=== PATIENT | male | born 1960 | race Caucasian/White ===

== ENCOUNTER 2024-01-07 15:35 | Observation (INO) | payer BC, SELFPAY ==
[2024-01-07] VITALS (16 sets, daily range): BP systolic 91–124; BP diastolic 56–81; BMI 21.3
--- NOTE | 2024-01-07 11:33 | ED.GENMED ---
History of Present Illness
<Dionicio Villegas PA-C - Last Filed: 01/07/24 14:36>
General
Chief Complaint: Abdominal Symptoms
Source: patient
Exam Limitations: none
Time Seen by Provider: 01/07/24 11:25
Travel History
Have you had any contact with someone who has COVID-19?: No
Do you have any symptoms of coronavirus? Fever > 100 degrees, chills, cough, shortness of breath, sore throat, loss of taste or smell, muscle aches, or headache?: No
History of Present Illness
History of Present Illness:
63-year-old male with history of gout and GERD and pancreatic insufficiency presents complaining of 3 days worth of vomiting with right-sided abdominal pain. He notes a bulge to the right side of the abdomen. He has not moved his bowels. Anytime
he takes a sip of water comes back up 5 minutes later. No fever. He has a history of inguinal hernia repair done on the left side years ago. No other complaints at this time
Past History
<Dionicio Villegas PA-C - Last Filed: 01/07/24 14:36>
Past History
ED Past Medical History: GERD, Hypercholesterolemia and Other (Gout)
Social History
Tobacco: Non-smoker
Personal: Single
Family History
Family History: Negative Early CAD or CAD
Phy Exam
<Dionicio Villegas PA-C - Last Filed: 01/07/24 14:36>
Physical Exam
Physical Exam:
General: Well-appearing male no acute respiratory distress
HEENT: Normocephalic atraumatic
Heart: Regular rate and rhythm no murmurs
Lungs: Clear no wheeze or rales
Abdomen: Soft tender to the right lower abdomen with palpable bulge. This bulge is firm nonreducible and tender
Extremities: No cyanosis or edema
Course
<Dionicio Villegas PA-C - Last Filed: 01/07/24 14:36>
Orders/Labs/Results
Orders:
Orders
01/07/24 Lunch
Low Residue
At Your Request: Full Participation
01/07/24 11:32
0.9% Sodium Chloride 1000 ml [Nss] 1,000 ml IV BOLUS
01/07/24 11:33
CT Abd/pelvis W Iv Cont Urgent
Comment:
Reason For Exam: vomiting, right sided hernia, ?bowel obstruction
01/07/24 11:36
Ondansetron Injectable [Zofran] 4 mg IV NOW STA
01/07/24 11:51
Complete Blood Count/With Diff Urgent
Comprehensive Metabolic Panel Urgent
Lactic Acid Q4H
Comment: CANCEL 2nd LACTIC ACID IF 1st LACTIC ACID IS LESS THAN 2
01/07/24 13:30
HYDROmorphone [Dilaudid] 0.5 mg IV NOW STA
01/07/24 13:48
0.9% Sodium Chloride 1000 ml [Nss] 1,000 ml IV BOLUS
01/07/24 14:16
Propofol [Diprivan] 20 ml .ROUTE .STK-MED
01/07/24 14:37
Admit Patient As Directed
Co-Sign Provider:
Level of Care: Observation services
Assign to:: Medical/Surgical
Physician / Group: [facility]
Diagnosis: RLQ spigelian hernia
Code Status As Directed
Resuscitation Status: Full Code
Acetaminophen [Tylenol] 650 mg PO Q4HPRN PRN
Ibuprofen [Motrin] 400 mg PO Q6HPRN PRN
Activity As Directed
Activity Level: Out of Bed-Early Mobility
Anti-embolism (GARIMA) Hose As Directed
Type: Thigh high
Intake/ Output As Directed
Frequency: Per unit guidelines
Vital Signs As Directed
Frequency: Per unit guidelines
01/07/24 14:38
Pneumatic Compression Sleeves As Directed
Type: Thigh high
DX Deep Vein Thrombosis Video Routine
01/07/24 18:00
Atorvastatin [Lipitor] 20 mg PO QPM
01/07/24 21:00
Timolol Maleate/Dorzolam HCl [Cosopt Eye Drops] See Dose Instructions OPHTH BID
01/08/24 08:00
Allopurinol [Zyloprim] 300 mg PO DAILY
Pantoprazole [Protonix] 40 mg PO DAILY
Abnormal Lab Results
01/07/24
11:51
RBC 4.36 L 10^6/uL
(4.70-6.10)
MCH 33.3 H pg
(27.0-31.0)
MPV 11.1 H fL
(7.4-10.4)
Absolute Neuts (auto) 7.6 H 10^3/uL
(1.4-6.5)
Absolute Lymphs (auto) 1.0 L 10^3/uL
(1.2-3.4)
Absolute Monos (auto) 0.9 H 10^3/uL
(0.1-0.6)
Neutrophils % 78.4 H %
(42.2-75.2)
Lymphocytes % 10.4 L %
(20.5-51.1)
BUN 30 H mg/dl
(9-20)
Total Bilirubin 1.5 H mg/dl
(0.2-1.3)
01/07/24 11:51
01/07/24 11:51
Vital Signs
Initial and Last Documented VS:
Initial Vital Signs
Temp Pulse Resp BP Pulse Ox
98.3 F 79 20 124/75 99
01/07/24 10:56 01/07/24 10:56 01/07/24 10:56 01/07/24 10:56 01/07/24 10:56
Last Documented Vital Signs
Temp Pulse Resp BP Pulse Ox
98.1 F 59 16 100/67 99
01/08/24 12:59 01/08/24 12:59 01/08/24 12:59 01/08/24 12:59 01/08/24 12:59
<Benjamin Ambriz, - Last Filed: 01/17/24 05:14>
Orders/Labs/Results
Orders:
Orders
01/07/24 Lunch
Low Residue
At Your Request: Full Participation
01/07/24 11:32
0.9% Sodium Chloride 1000 ml [Nss] 1,000 ml IV BOLUS
01/07/24 11:33
CT Abd/pelvis W Iv Cont Urgent
Comment:
Reason For Exam: vomiting, right sided hernia, ?bowel obstruction
01/07/24 11:36
Ondansetron Injectable [Zofran] 4 mg IV NOW STA
01/07/24 11:51
Complete Blood Count/With Diff Urgent
Comprehensive Metabolic Panel Urgent
Lactic Acid Q4H
Comment: CANCEL 2nd LACTIC ACID IF 1st LACTIC ACID IS LESS THAN 2
01/07/24 13:30
HYDROmorphone [Dilaudid] 0.5 mg IV NOW STA
01/07/24 13:48
0.9% Sodium Chloride 1000 ml [Nss] 1,000 ml IV BOLUS
01/07/24 14:16
Propofol [Diprivan] 20 ml .ROUTE .STK-MED
01/07/24 14:37
Admit Patient As Directed
Co-Sign Provider:
Level of Care: Observation services
Assign to:: Medical/Surgical
Physician / Group: [facility]
Diagnosis: RLQ spigelian hernia
Code Status As Directed
Resuscitation Status: Full Code
Acetaminophen [Tylenol] 650 mg PO Q4HPRN PRN
Ibuprofen [Motrin] 400 mg PO Q6HPRN PRN
Activity As Directed
Activity Level: Out of Bed-Early Mobility
Anti-embolism (GARIMA) Hose As Directed
Type: Thigh high
Intake/ Output As Directed
Frequency: Per unit guidelines
Vital Signs As Directed
Frequency: Per unit guidelines
01/07/24 14:38
Pneumatic Compression Sleeves As Directed
Type: Thigh high
DX Deep Vein Thrombosis Video Routine
01/07/24 18:00
Atorvastatin [Lipitor] 20 mg PO QPM
01/07/24 21:00
Timolol Maleate/Dorzolam HCl [Cosopt Eye Drops] See Dose Instructions OPHTH BID
01/08/24 08:00
Allopurinol [Zyloprim] 300 mg PO DAILY
Pantoprazole [Protonix] 40 mg PO DAILY
Abnormal Lab Results
01/07/24
11:51
RBC 4.36 L 10^6/uL
(4.70-6.10)
MCH 33.3 H pg
(27.0-31.0)
MPV 11.1 H fL
(7.4-10.4)
Absolute Neuts (auto) 7.6 H 10^3/uL
(1.4-6.5)
Absolute Lymphs (auto) 1.0 L 10^3/uL
(1.2-3.4)
Absolute Monos (auto) 0.9 H 10^3/uL
(0.1-0.6)
Neutrophils % 78.4 H %
(42.2-75.2)
Lymphocytes % 10.4 L %
(20.5-51.1)
BUN 30 H mg/dl
(9-20)
Total Bilirubin 1.5 H mg/dl
(0.2-1.3)
01/07/24 11:51
01/07/24 11:51
Vital Signs
Initial and Last Documented VS:
Initial Vital Signs
Temp Pulse Resp BP Pulse Ox
98.3 F 79 20 124/75 99
01/07/24 10:56 01/07/24 10:56 01/07/24 10:56 01/07/24 10:56 01/07/24 10:56
Last Documented Vital Signs
Temp Pulse Resp BP Pulse Ox
98.1 F 59 16 100/67 99
01/08/24 12:59 01/08/24 12:59 01/08/24 12:59 01/08/24 12:59 01/08/24 12:59
Procedures
<Dionicio Villegas PA-C - Last Filed: 01/07/24 14:36>
Moderate Sedation
ASA Risk Score: Class II
Chart and allergies reviewed: Yes
Consent for anesthesia obtained: Yes
Time out completed (validating right patient & procedure): Yes
Moderate Sedation Start Time(when first medication is given): 14:21
History of difficult intubation: No
Airway free of obstruction: Yes
Patient has a gag reflex: Yes
Patient is able to open mouth: Yes
Patient has no dentures: Yes
Patient has no loose teeth: Yes
Medication administered by Provider during Moderate Sedation: IV Propofol (mg)
Total dose administered: 80
Time drug administered: 14:21
Moderate Sedation Procedure End Time: 14:32
<YUNIOR Lucio Last Filed: 01/07/24 14:36>
MDM/Problems Addressed
Differential Diagnosis Includes:
Abdominal pain with vomiting. Clinical concern for possible incarcerated hernia causing small bowel obstruction. Other items could include appendicitis versus abscess. Will check for electrolyte abnormality and the blood work. CT pending.
Fluids and Zofran ordered
<YUNIOR Lucio Last Filed: 05/29/24 14:36>
*Critical Care Note
Total Time (30-74mins, 75-104mins- exclusive of procedures): Not Applicable
<Dionicio Villegas PA-C - Last Filed: 01/07/24 14:36>
Update Note
Update Note:
CT reviewed and demonstrates incarcerated spigelian hernia in the right lower quadrant. Discussed these findings with surgery who is in to evaluate the patient. Patient is quite tender on exam he was given fluids and pain medicine. Written
consent was then obtained for moderate sedation and closed reduction of the hernia. Sedation performed by emergency room attending. Reduction performed by general surgery, Dr. Mccormack. This was successful. Patient will be kept overnight under the
surgery service.
ED Attending Note
<Dionicio Villegas PA-C - Last Filed: 01/07/24 14:36>
-
Portions of this chart may have been created with voice recognition software.� Occasional wrong word or��sound alike� substitutions may have occurred due to the inherent limitations of voice recognition software.
<Benjamin Ambriz DO - Last Filed: 01/17/24 05:14>
ED Attending Note
Patient seen and examined by attending physician: Yes
I performed the substantive portion of visit, reviewed & personally made and approve the management plan that is documented in note by myself or RAJIV.: Yes
ED Attending Note:
63yo with R hernia. Seen by surgery. Patient has been vomiting and unable to eat for 3 days. Exam: Awake and alert, moderate right-sided tenderness. Assessment and plan: Sedation for hernia reduction successful. Admit to surgery
Discharge Plan
Departure
Patient Disposition: Admit
Presentation/result/management discussed w/ accepting MD/DO: surgery
Discharge Problem:
Incarcerated hernia
Interventions
Interventions:
*Risk Screen - Suicide Last Done: 01/07/24 10:56
*General Assessment Last Done: 01/07/24 10:56
*Neglect/Abuse Screening Last Done: 01/07/24 10:56
ED- Fall Risk Assessment Last Done: 01/07/24 19:59
*ED COVID-19 Vaccine History Last Done: 01/07/24 18:40
*Nursing Disposition Last Done: 01/07/24 19:59
UA-Mvmixh-Tumlygigpl Assessment Last Done: 01/07/24 11:45
Discharge Date and Time
Discharge Date/Time: 01/07/24 19:45
[2024-01-07] MEDS: ZOFRAN 4 MG IV (11:49)
[2024-01-07] MEDS: NSS 1000 IV ×2 (11:49→13:54)
[2024-01-07 12:42] LABS: % Basophils 0.6 % (0-2); % Eosinophils 1.2 % (0-6); % Immature Granulocytes 0.3 % (0-0.5); % Lymphocytes 10.4 % (20.5-51.1); % Monocytes 9.1 % (1.7-9.3); % Neutrophils 78.4 % (42.2-75.2); Absolute Basophils 0.1 10^3/uL (0-0.2); Absolute Eosinophils 0.1 10^3/uL (0-0.7); Absolute Monocytes 0.9 10^3/uL (0.1-0.6); Absolute Neutrophils 7.6 10^3/uL (1.4-6.5); Hemoglobin 14.5 g/dL (13.0-18.0); Mean Corp Hgb Conc. 36.3 g/dL (33.0-37.0); Mean Corpuscular Hgb 33.3 pg (27.0-31.0); Mean Corpuscular Volume 91.7 fL (80.0-94.0); Mean Platelet Volume 11.1 fL (7.4-10.4); Nucleated Red Blood Cells % 0 % (-); Platelet Count 254 10^3/uL (130-400); Red Blood Cell Count 4.36 10^6/uL (4.70-6.10); Red Cell Dist. Width 12.9 % (11.5-14.5); White Blood Cell Count 9.7 10^3/uL (4.8-10.8)
[2024-01-07 12:48] LABS: ALT (SGPT) 20 U/L (0-50); AST (SGOT) 26 U/L (17-59); Albumin 4.7 g/dl (3.5-5.0); Alkaline Phosphatase 53 U/L (38-126); Blood Urea Nitrogen 30 mg/dl (9-20); Calcium 9.5 mg/dl (8.4-10.2); Carbon Dioxide 27 mmol/L (22-30); Chloride 100 mmol/L (98-107); Glucose 98 mg/dl (70-99); Potassium 4.6 mmol/L (3.5-5.1); Sodium 139 mmol/L (135-145); Total Bilirubin 1.5 mg/dl (0.2-1.3); Total Protein 7.5 g/dl (6.3-8.2); eGFR > 60.00
[2024-01-07 12:49] LABS: Lactic Acid 1.6 mmol/L (0.7-2.0)
[2024-01-07] MEDS: DILAUDID 0.5 MG IV (13:40)
--- NOTE | 2024-01-07 14:31 | CON.GS ---
Consultation
-
Requesting Provider: Bakari
Performing Provider: [facility]
Reason for Consultation: Incarcerated RLQ spigelian hernia
Medical History
-
Chief Complaint: Abd pain
History of Present Illness:
63M with 3 day hx of RLQ abd pain that began acutely. Associated with n/v. Denies f/c. Denies recent heavy lift, coughing/sneeezing/straining. Has known about the hernia for awhile but it was never a problem until this episode. He has not been able
to tolerate PO. He has not been passing flatu nor stool.
Past Medical History
Past Medical History: GERD, Hypercholesterolemia and Other (gout)
Past Surgical History: Reviewed & Noncontributory
Social History
Tobacco: Non-Smoker
Personal: Single
Family History
Family History: Reviewed & Not Pertinent
Allergies / Home Medications
Allergy/AdvReac Type Severity Reaction Status Date / Time
No Known Allergies Allergy Verified 01/07/24 10:55
�Medication �Instructions �Recorded �Confirmed �Type
allopurinol 300 mg tablet 300 mg PO DAILY 10/12/21 10/12/21 History
atorvastatin 10 mg tablet 20 mg PO QPM 10/12/21 10/12/21 History
cholecalciferol (vitamin D3) 25 1,000 unit PO DAILY 10/12/21 10/12/21 History
mcg (1,000 unit) capsule (Vitamin
D3)
pantoprazole 40 mg tablet,delayed 40 mg PO DAILY 10/12/21 10/12/21 History
release
timolol 0.25 % eye drops (Betimol) 5 ml OP DAILY 10/12/21 10/12/21 History
Review of Systems
-
A 10 point review of systems was completed, and was negative except as per HPI.
Physical Exam
Vital Signs
Temp Pulse Resp BP Pulse Ox
98.3 F 75 20 92/61 99
01/07/24 10:56 01/07/24 13:44 01/07/24 13:44 01/07/24 13:44 01/07/24 13:44
01/06/24 01/07/24 01/08/24
06:59 06:59 06:59
Actual Weight 70.6 kg
Lab Results
01/07/24 11:51
01/07/24 11:51
WBC 9.7 10^3/uL (4.8-10.8) 01/07/24 11:51
Hgb 14.5 g/dL (13.0-18.0) 01/07/24 11:51
Hct 40.0 % (39.0-52.0) 01/07/24 11:51
Plt Count 254 10^3/uL (130-400) 01/07/24 11:51
Abs Immat Gran (auto) 0.0 10^3/uL (0-0.05) 01/07/24 11:51
Neutrophils % 78.4 % (42.2-75.2) H 01/07/24 11:51
Physical Exam
General: Well Developed, Well Nourished and No Apparent Distress
GI: Soft, Non Distended and Tender (RLQ firm tender mass)
Skin: Warm and Dry
Neuro: AO x 3
Psych: Calm
Data Reviewed
-
CT Scan: Image Personally Visualized and interpreted, Report Reviewed by me, Discussed with Physician and Discussed with Patient
Labs: Labs Reviewed by me
Assessment / Plan
-
63M with incarcerated RLQ spigelian hernia
AFVSS, tender firm hernia on exam
No leukocytosis
CT with RLQ spigelian hernia involving small bowel, high grade obstruction
ED monitored sedation with propofol, manually reduced hernia
Plan:
Admit for obs
Low res diet
Tentative for DC tomorrow if feeling well, scheduled for 6/10 for elective robo repair.
Home meds
DVT ppx
--- NOTE | 2024-01-07 22:00 | PTCARENOTE ---
Patient received from ED via stretcher. Patient able to ambulate independently into room. Patient denies any pain, patient s/p hernia reduction done manually in ED. Call [facility] and room orientation provided to patient. POC reviewed with patient. Care
ongoing.
[2024-01-08 07:00] VITALS: BP 97/59
--- NOTE | 2024-01-08 08:18 | W.PN.GS2 ---
Today's Communication / Plan
-
`
Assessment / Plan
-
Assessment: 63 y/o male p/w incarcerated and obstructing RLQ spigelian hernia - reduced in ER with sedation
AFVSS
no signs/symptoms of obstruction or recurrent incarceration after reduction
Plan: pt will be discharged and outpt surgery has been scheduled by/with Toni Mccormack on 01/19/24
Subjective Data
-
Date of Service: January 08, 2024
pt seen and examined
minimal soreness at hernia site
no nausea
adeel breakfast
+fl and small BM yesterday evening
Objective Data
-
Intake and Output
01/07/24 01/08/24 01/09/24
06:59 06:59 06:59
Intake Total 1480 / 1480
Balance 1480 / 1480
Intake:
Oral fluids 480 / 480
IV fluids (Total) 1000 / 1000
NSS 1000 / 1000
Other:
Number of approximated MODERATE 1
amounts of urine
Vital Signs
Temp Pulse Resp BP Pulse Ox
98.4 F 57 16 97/59 100
01/08/24 07:00 01/08/24 07:00 01/08/24 07:00 01/08/24 07:00 01/08/24 07:00
Lab Results
01/07/24 11:51
01/07/24 11:51
Calcium 9.5 mg/dl (8.4-10.2) 01/07/24 11:51
Total Bilirubin 1.5 mg/dl (0.2-1.3) H 01/07/24 11:51
AST 26 U/L (17-59) 01/07/24 11:51
ALT 20 U/L (0-50) 01/07/24 11:51
Alkaline Phosphatase 53 U/L (38-126) 01/07/24 11:51
Total Protein 7.5 g/dl (6.3-8.2) 01/07/24 11:51
Albumin 4.7 g/dl (3.5-5.0) 01/07/24 11:51
Physical Exam
-
NAD AAOx3
ABD soft, ND, minimal RLQ tenderness
hernia reduced and not palpable this AM
--- NOTE | 2024-01-08 08:23 | W.DS.TRANS ---
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
-
Discharge Instructions:
Discharge Diagnosis/Procedures Right lower quadrant spigelian hernia
Diet No restrictions,As tolerated
Activity No strenuous activity
Driving Restrictions As prior to admission
Bathing Restrictions OK to Shower
Instructions: Abdominal wall hernias
Stand-Alone Forms:
Changes to Home Medications: No
Discharge Medications:
DC Medications w/original date entered in [employer]
allopurinol 300 mg tablet 300 mg PO DAILY 10/12/21
cholecalciferol (vitamin D3) 25 mcg (1,000 unit) capsule (Vitamin D3) 1,000 unit PO DAILY 10/12/21
pantoprazole 40 mg tablet,delayed release 40 mg PO DAILY 10/12/21
dorzolamide-timolol (PF) 2 %-0.5 % eye drops in a dropperette 1 drp RIGHT EYE BID 01/07/24
ytgejz-bbvvxuek-hbgqimm 12,000-38,000-60,000 unit capsule,delayed rel (Creon) 1 cap PO TIDPRN PRN high calorie intake 01/07/24
therapeutic multivitamin 1 tab PO DAILY 01/07/24
Home Medication Changes
Pending Results: No
--- NOTE | 2024-01-08 09:54 | CM ---
Patient seen at bedside. Patient stated that he lives alone, in a 2 story home. Patient indicated that he has no DME at home. Patient stated that his PCP is Dr. Mckenna and that he uses the [facility] in [place]. Patient states that he has no
needs for discharge at this time. CM reviewed OBS form and patient to review. CM updated surgeon regarding patient question about OBS status. CM will continue to follow for discharge planning needs.
Plan; home with no needs anticipated.
[2024-01-08 12:59] VITALS: BP 100/67
== END 2024-01-08 13:11 | disposition home or self-care (01) ==
LOC: 3 WEST ACU 15:35
PROVIDERS: Physician Assistant; ADMITTING PHYSICIAN Surgery; EMERGENCY PHYSICIAN Emergency Medicine; FAMILY PHYSICIAN Internal Medicine
DX: K43.6 Other and unspecified ventral hernia with obstruction, without gangrene (principal); R10.9 Unspecified abdominal pain; K21.9 Gastro-esophageal reflux disease without esophagitis; M10.9 Gout, unspecified; E78.00 Pure hypercholesterolemia, unspecified; N40.0 Benign prostatic hyperplasia without lower urinary tract symptoms
CPT/HCPCS: 74177; 80053; 83605; 85025; 93005; 96361; 96374; 96375; 99152; 99285; G0378; Q9967

== ENCOUNTER 2024-01-19 06:34 | Day surgery (SDC) | payer BC, SELFPAY ==
[2024-01-19] VITALS (7 sets, daily range): BP systolic 101–113; BP diastolic 68–75; BMI 21.2
[2024-01-19] MEDS: TYLENOL 1000 MG PO (14:40)
[2024-01-19] MEDS: NORMOSOL-R 1000 IV (14:47)
--- NOTE | 2024-01-19 17:33 | W.IMMPOSTOP ---
Surgical Immed Post Op Note
-
Primary Surgeon: [facility]
Assisting: Radha LOPEZ
Pre-op Diagnosis: Incarcerated spigelian hernia
Post-op Diagnosis: Incarcerated spigelian hernia
Procedure Performed: Robot assisted laparoscopic repair of incarcerated spigelian hernia (rTAPP, 2cm)
Anesthesia Type: GETA block
Specimen / Cultures: None
Estimated Blood Loss: 5cc
Complications: None immediate
Operative Findings: 2cm right lower quadrant spigelian hernia with incarcerated fat, 9cm soft mesh
--- NOTE | 2024-01-19 17:39 | OR.RPT ---
Operative Report
Operative Report
Primary Surgeon: [facility]
Assisting: Radha LOPEZ
Pre-op Diagnosis: Incarcerated spigelian hernia
Post-op Diagnosis: Incarcerated spigelian hernia
Procedure Performed: Robot assisted laparoscopic repair of incarcerated spigelian hernia (rTAPP, 2cm)
Anesthesia Type: GETA block
Specimen / Cultures: None
Estimated Blood Loss: 5cc
Complications: None immediate
Operative Findings: 2cm right lower quadrant spigelian hernia with incarcerated fat, 9cm soft mesh
Date of surgery: 01/19/24
Indications:� This 63M developed a an incarcerated right lower quadrant spigelian hernia with bowel obstruction. He was reduced under sedation in the Emergency Dept and discharged home after tolerating diet. Robot assisted laparoscopic repair was
planned.
Description of procedure:� The patient was taken to the operating room and positioned into supine position. The patient�s abdomen was prepped and draped in standard sterile fashion. A time-out was completed verifying correct patient, procedure,
site, positioning, and implants and special equipment prior to beginning this procedure.� A stab incision was made in the left upper quadrant, a Veress needle was inserted and proper position was confirmed by aspiration and saline drop test.
Following this, pneumoperitoneum was created with insufflation of carbon dioxide to 12 mmHg. Then a 8mm robotic trocar was inserted above and to the right of the umbilicus. A laparoscope was inserted and the area of initial trocar entry and Veress
needle placement were both inspected and no injuries were found. Two 8mm trocars were then placed a hand's breadth left and right of the initial trocar under direct visualization.
Attention was turned to the right lower quadrant. The peritoneum was incised several cm superior to the defect transversely. This flap was developed inferiorly with blunt and sharp dissection in the caudad direction. The hernia was identified and
measured 2cm, incarcerated fat was reduced and the hernia was closed with 0 PDS stratafix suture. A 9 x 9cm piece of bard soft mesh was passed into the abdomen and placed flush against the abdominal wall centered on the defect. The mesh was secured
at all four corners with 2-0 vicryl suture. The flap was closed with 2-0 monocryl suture. A 14g angiocath was used to decompress the preperitoneal space revealing good seal and all mesh in good position without folding or curling.
After ensuring adequate hemostasis, the trocars were removed and the pneumoperitoneum allowed to escape. The trocar incisions were closed at the skin level using 4-0 monocryl and topical skin adhesive. All counts were correct and the patient
tolerated the procedure well and was taken to the postanesthesia care unit in stable condition.
The assistance of Radha LOPEZ was required due to the complexity of the procedure. During the procedure he assisted with retraction, resection, and closure of the wound.
[2024-01-19] MEDS: DILAUDID 0.25 MG IV (17:58)
== END 2024-01-19 19:08 | disposition home or self-care (01) ==
LOC: SDS 06:34
PROVIDERS: ATTENDING PHYSICIAN Surgery
DX: K43.6 Other and unspecified ventral hernia with obstruction, without gangrene (principal)
CPT/HCPCS: 49592; C1781

== ENCOUNTER → 2024-07-06 11:37 | Outpatient (REF) | payer OTHER, SELFPAY | LOC: PAVMRI 11:37 | PROVIDERS: ATTENDING PHYSICIAN Internal Medicine Gastroenterology; FAMILY PHYSICIAN Internal Medicine | DX: K86.81 Exocrine pancreatic insufficiency (principal); R63.4 Abnormal weight loss | CPT/HCPCS: 74183; A9575 ==

== ENCOUNTER 2024-08-10 03:13 | Emergency (ER) | payer OTHER, SELFPAY ==
[2024-08-10 03:27] VITALS: BP 118/68
[2024-08-10 03:49] LABS: % Basophils 0.3 % (0-2); % Eosinophils 1.2 % (0-6); % Immature Granulocytes 0.2 % (0-0.5); % Lymphocytes 6.8 % (20.5-51.1); % Monocytes 4.1 % (1.7-9.3); % Neutrophils 87.4 % (42.2-75.2); Absolute Eosinophils 0.1 10^3/uL (0-0.7); Absolute Lymphocytes 0.7 10^3/uL (1.2-3.4); Absolute Monocytes 0.4 10^3/uL (0.1-0.6); Absolute Neutrophils 8.7 10^3/uL (1.4-6.5); Hematocrit 37.5 % (39.0-52.0); Hemoglobin 12.7 g/dL (13.0-18.0); Mean Corp Hgb Conc. 33.9 g/dL (33.0-37.0); Mean Corpuscular Hgb 32.6 pg (27.0-31.0); Mean Corpuscular Volume 96.4 fL (80.0-94.0); Mean Platelet Volume 9.3 fL (7.4-10.4); Nucleated Red Blood Cells % 0 % (-); Platelet Count 219 10^3/uL (130-400); Red Blood Cell Count 3.89 10^6/uL (4.70-6.10); Red Cell Dist. Width 12.9 % (11.5-14.5)
[2024-08-10 04:03] LABS: ALT (SGPT) 126 U/L (0-50); AST (SGOT) 201 U/L (17-59); Albumin 4.6 g/dl (3.5-5.0); Alkaline Phosphatase 81 U/L (38-126); Blood Urea Nitrogen 21 mg/dl (9-20); Carbon Dioxide 29 mmol/L (22-30); Chloride 103 mmol/L (98-107); Glucose 105 mg/dl (70-99); Lipase 134 U/L (23-300); Potassium 4.5 mmol/L (3.5-5.1); Sodium 139 mmol/L (135-145); Total Protein 7.3 g/dl (6.3-8.2); eGFR > 60.00
[2024-08-10 04:14] LABS: Troponin I < 0.012 ng/ml
[2024-08-10 06:24] VITALS: BP 99/68
[2024-08-10 06:48] VITALS: BP 114/69
[2024-08-10 06:54] VITALS: BMI 22.0
[2024-08-10 07:00] VITALS: BP 95/66
--- NOTE | 2024-08-10 07:34 | ED.GENMED ---
History of Present Illness
<Saji Jacobs DO, Resident - Last Filed: 08/10/24 09:10>
General
Chief Complaint: Chest Pain
Source: patient and records
Time Seen by Provider: 08/10/24 07:02
History of Present Illness
History of Present Illness:
64-year-old male past medical history of GERD, pancreatic insufficiency on Creon, hernia repair, gallstones presents for abdomen/chest pain starting at approximately 11 last night. Patient reports last time he ate was approximately 7 PM last night
patient reports the pain is sternal in location, describes it as pressure-like sensation. Patient reports he had had similar like symptoms approximately 8 months ago, however has not had any symptoms since. Patient reports he had taken himself off
PPI medication about 8 months ago, which he has been on for approximately 15 years. Patient also reports he had an EGD and colonoscopy in November 2023, both of which were normal. Patient also reports he has a follow-up appointment with his GI doctor
coming up on 08/23/2024. Of note patient mentions having some insurance difficulties and has concerns about cost benefit of workup. Patient also mentions approximately 85 pound weight loss in the last year, attributing to pancreatic insufficiency.
He had an MRI recently which demonstrated gallstones.
Past History
<Saji Jacobs DO, Resident - Last Filed: 08/10/24 09:10>
Past History
ED Past Medical History: GERD, Hypercholesterolemia and Other (Gout)
Social History
Tobacco: Non-smoker
Alcohol: None
Personal: Single
Family History
Family History: Negative Early CAD or CAD
Review of Systems
<Saji Jacobs DO, Resident - Last Filed: 08/10/24 09:10>
Review of Systems
Constitutional: Reports weight loss (Approximately 85 pound in last year); Denies fever or chills
Respiratory: Reports no symptoms
Cardiac: Reports chest pain; Denies diaphoresis or palpitations
ABD/GI: Reports abdominal pain; Denies nausea or vomiting
: Reports no symptoms
Musculoskeletal: Reports no symptoms
Neurological: Reports no symptoms
Phy Exam
<Saji Jacobs DO, Resident - Last Filed: 08/10/24 09:10>
General Physical Exam
General Presentation: well appearing and no apparent distress
General Skin: warm and dry
Cardiovascular Exam
Cardiovascular Exam: regular rate/rhythm, no edema and systolic murmur (Soft systolic murmur)
Pulmonary Exam
Pulmonary Exam: lungs clear, no respiratory distress, no crackles and no wheezing
Gastrointestinal Exam
Gastrointestinal Exam: non tender, soft, non distended and other (Abdomen benign, no tenderness to palpation, no rebound no guarding)
Scores
<Saji Jacobs DO, Resident - Last Filed: 08/10/24 09:10>
Heart Score for Chest Pain Patients
STEMI patient?: No
History: Slightly or Non-Suspicious
ECG: Normal
Age: >45 - <65 years
Risk Factors: 1 or 2 Risk Factors
Troponin: </= Normal Limit
Heart Score for Chest Pain Patients: 2
Heart Score Risk: 2.5% MACE over next 6 weeks
Course
<Saji Jacobs DO, Resident - Last Filed: 08/10/24 09:10>
Orders/Labs/Results
Orders:
Orders
08/10/24 03:30
Electrocardiogram (*1) Urgent
Reason for Study: Chest Pain
Other Reason for Exam: UPPER ABDOMEN
08/10/24 03:31
EKG- Treatment ONCE
08/10/24 03:42
Complete Blood Count/With Diff Urgent
Comprehensive Metabolic Panel Urgent
Lipase Urgent
Troponin I Urgent
08/10/24 08:12
Troponin I Urgent
Abnormal Lab Results
08/10/24
03:42
RBC 3.89 L 10^6/uL
(4.70-6.10)
Hgb 12.7 L g/dL
(13.0-18.0)
Hct 37.5 L %
(39.0-52.0)
MCV 96.4 H fL
(80.0-94.0)
MCH 32.6 H pg
(27.0-31.0)
Absolute Neuts (auto) 8.7 H 10^3/uL
(1.4-6.5)
Absolute Lymphs (auto) 0.7 L 10^3/uL
(1.2-3.4)
Neutrophils % 87.4 H %
(42.2-75.2)
Lymphocytes % 6.8 L %
(20.5-51.1)
BUN 21 H mg/dl
(9-20)
Glucose 105 H mg/dl
(70-99)
AST 201 H U/L
(17-59)
ALT 126 H U/L
(0-50)
08/10/24 03:42
08/10/24 03:42
Vital Signs
Initial and Last Documented VS:
Initial Vital Signs
Temp Pulse Resp BP Pulse Ox
98 F 72 20 118/68 100
08/10/24 03:27 08/10/24 03:27 08/10/24 03:27 08/10/24 03:27 08/10/24 03:27
Last Documented Vital Signs
Temp Pulse Resp BP Pulse Ox
98 F 75 17 100/68 99
08/10/24 03:27 08/10/24 08:15 08/10/24 08:15 08/10/24 08:00 08/10/24 08:15
<Brittany Lima MD - Last Filed: 08/10/24 08:11>
Orders/Labs/Results
Orders:
Orders
08/10/24 03:30
Electrocardiogram (*1) Urgent
Reason for Study: Chest Pain
Other Reason for Exam: UPPER ABDOMEN
08/10/24 03:31
EKG- Treatment ONCE
08/10/24 03:42
Complete Blood Count/With Diff Urgent
Comprehensive Metabolic Panel Urgent
Lipase Urgent
Troponin I Urgent
08/10/24 08:12
Troponin I Urgent
Abnormal Lab Results
08/10/24
03:42
RBC 3.89 L 10^6/uL
(4.70-6.10)
Hgb 12.7 L g/dL
(13.0-18.0)
Hct 37.5 L %
(39.0-52.0)
MCV 96.4 H fL
(80.0-94.0)
MCH 32.6 H pg
(27.0-31.0)
Absolute Neuts (auto) 8.7 H 10^3/uL
(1.4-6.5)
Absolute Lymphs (auto) 0.7 L 10^3/uL
(1.2-3.4)
Neutrophils % 87.4 H %
(42.2-75.2)
Lymphocytes % 6.8 L %
(20.5-51.1)
BUN 21 H mg/dl
(9-20)
Glucose 105 H mg/dl
(70-99)
AST 201 H U/L
(17-59)
ALT 126 H U/L
(0-50)
08/10/24 03:42
08/10/24 03:42
Vital Signs
Initial and Last Documented VS:
Initial Vital Signs
Temp Pulse Resp BP Pulse Ox
98 F 72 20 118/68 100
08/10/24 03:27 08/10/24 03:27 08/10/24 03:27 08/10/24 03:27 08/10/24 03:27
Last Documented Vital Signs
Temp Pulse Resp BP Pulse Ox
98 F 75 17 100/68 99
08/10/24 03:27 08/10/24 08:15 08/10/24 08:15 08/10/24 08:00 08/10/24 08:15
<Saji Jacobs DO, Resident - Last Filed: 08/10/24 09:10>
MDM/Problems Addressed
Differential Diagnosis Includes:
Cholelithiasis, gastritis, hepatitis
MDM/Problems Addressed:
64 male past medical history of GERD, hernia repair, pancreatic insufficiency on Creon, gallstones�confirmed on recent MRI presents for abdomen/chest pain starting at 11 last night. He describes the pain as substernal, pressure-like in nature and
acute in onset, denies nausea, no palpitations, no shortness of breath. Pain has resolved at this point. Patient reports last eating at approximately 7 PM last night, onset of symptoms around 11
Patient reports previously there was no association between food and onset of the symptom
Patient reports he had episodes of this previously approximately 8 months ago, this was his first episode that happened for the last 8 months.
EKG in emergency department demonstrated normal sinus rhythm with slight intraventricular conduction delay�same as EKG in December. No ischemic changes noted
Troponins negative, lipase within normal limits
AST ALT elevated, alk phos within normal limits. AST ALT ratio 1.6 patient reports not drinking alcohol and never having elevated liver enzymes in the past
Transaminitis appears hepatic in nature with normal alk phos
Patient afebrile, white blood cell count within normal limits, kidney function within normal limits, electrolytes within normal limit
Blood pressure soft in emergency department, patient reports he runs approximately 100 systolic, asymptomatic. Patient respectfully declined IV fluids
Of note patient reports taking a PPI for the last 15 years, however he took himself off it approximately 8 months prior
Last colonoscopy and EGD was in November 2023, both were normal per patient
Patient has a follow-up appointment with GI here 08/23/2024
Of note, patient mentions having some insurance difficulties and he is concerned with the cost benefit of workup in the ED. Patient respectfully declined CT scan
Likely source of patient's pain is gastrointestinal in nature, do not believe patient is having any ACS, EKG nonischemic, troponin negative
Will recheck troponin, recheck troponin was negative
As patient's pain has resolved at this point, troponin negative x 2, EKG nonischemic�unchanged from previous, he is currently asymptomatic, lipase normal, vitals stable it is reasonable to forego further workup in the emergency department at this
time noting patient's insurance difficulties/cost-benefit of workup and considering he has a follow-up with a GI doctor coming up within the next 2 weeks
Encourage follow-up with primary care physician within a week and GI doctor within the next 2 weeks
<Saji Jacobs DO, Resident - Last Filed: 08/10/24 09:10>
*Critical Care Note
Total Time (30-74mins, 75-104mins- exclusive of procedures): Not Applicable
ED Attending Note
<Saji Jacobs DO, Resident - Last Filed: 08/10/24 09:10>
-
Portions of this chart may have been created with voice recognition software.� Occasional wrong word or��sound alike� substitutions may have occurred due to the inherent limitations of voice recognition software.
<Brittany Lima MD - Last Filed: 08/10/24 08:11>
ED Attending Note
Patient seen and examined by attending physician: Yes
I performed the substantive portion of visit, reviewed & personally made and approve the management plan that is documented in note by myself or RAJIV.: Yes
ED Attending Note:
64-year-old male with a history of pancreatic insufficiency reflux hernia repair and known gallstones presents emergency department with complaints of pain in the epigastric/lower sternal area that started approximately 11 PM last night. His last
meal was pizza at approximately 7 PM. The pain was gradual in onset, but persistent which concerned him. Of note, by 4 AM, pain had completely resolved. He denies radiation of the pain, exacerbating, relieving factors. He denies associated
nausea, vomiting, fever, chills, dyspnea, diaphoresis, palpitations, or other complaints. On exam, patient awake alert pleasant and asymptomatic. Abdomen soft and nontender. Workup consistent with mild LFT elevation, nonobstructive pattern.
First troponin and ECG unremarkable. Second troponin pending. Differential diagnosis includes ACS, gastritis, reflux, cholecystitis, cholelithiasis, etc. Given workup thus far history, physical, I suspect symptoms most likely related to
cholelithiasis. Patient would like us to be judicious in further testing and given that he is pain-free, I think cholecystitis or other worrisome etiology is extremely unlikely. If second troponin unremarkable patient will be discharged with close
GI follow-up.
Discharge Plan
Departure
Patient Disposition: Home (Routine Discharge)
Date of Disposition: 08/10/24
Time of Disposition: 09:01
Patient with high blood pressure during this ER visit?: No
Condition: Good
Discharge Problem:
Abdominal pain, Cholelithiasis
Instructions: Gallstones, Abdominal pain in adults - ED discharge instructions
Prescriptions:
No Action
pantoprazole 40 MG tablet,delayed release (DR/EC)
40 mg PO DAILY
allopurinol 300 MG tablet
300 mg PO DAILY
cholecalciferol (vitamin D3) [Vitamin D3] 1,000 UNIT capsule
1,000 unit PO DAILY
therapeutic multivitamin Tablet
1 tab PO DAILY
Creon 12,000-38,000 -60,000 unit Capsule,Delayed Release(Dr/Ec)
1 cap PO MEALS
dorzolamide-timolol (PF) 2-0.5 % Dropperette
1 drp RIGHT EYE BID
amoxicillin 500 mg Tablet
2,000 mg PO PRN PRN (Reason: Pre Dental/ surgical Procedure)
oxycodone 5 mg tablet
5 - 10 mg PO Q4HPRN PRN (Reason: moderate to severe pain) Qty: 20 0RF
Referrals:
Bijan Rod, [Family Provider] - Call in 1-3 days for appt
Activity Restrictions/Additional Instructions:
Please follow-up with your primary care physician, call in 1 to 3 days for an appointment
Please follow-up with your dimensional engineer on your appointment at 08/23/2024, please show your dimensional engineer the labs attached to this discharge packet regarding your elevated liver enzymes
Please use Tylenol as needed for pain, please avoid Motrin, naproxen, until seen by gastroenterology. Do not take more than 4000 mg of Tylenol in a 24-hour period
Please return if your symptoms worsen, you develop any further crushing chest pain, or with any concerns
Interventions
Interventions:
*Risk Screen - Suicide Last Done: 08/10/24 03:27
*General Assessment Last Done: 08/10/24 06:53
*Neglect/Abuse Screening Last Done: 08/10/24 03:27
ED- Fall Risk Assessment Last Done: 08/10/24 06:53
*ED COVID-19 Vaccine History Last Done: 08/10/24 06:53
ED- Cardiac Assessment Last Done: 08/10/24 06:52
Discharge Date and Time
Print Language: NAURUAN
[2024-08-10 08:00] VITALS: BP 100/68
[2024-08-10 08:51] LABS: Troponin I < 0.012 ng/ml
== END 2024-08-10 09:20 | disposition home or self-care (01) ==
LOC: EMR 03:13
PROVIDERS: Emergency Medicine; EMERGENCY PHYSICIAN Emergency Medicine; FAMILY PHYSICIAN Family Medicine
DX: K80.20 Calculus of gallbladder without cholecystitis without obstruction (principal); R10.13 Epigastric pain; K21.9 Gastro-esophageal reflux disease without esophagitis
CPT/HCPCS: 99284; 80053; 83690; 84484; 85025; 93005

== ENCOUNTER → 2024-11-24 10:14 | Outpatient (REF) | payer OTHER, SELFPAY | LOC: HWRAD 10:14 | PROVIDERS: ATTENDING PHYSICIAN Otolaryngology; FAMILY PHYSICIAN Family Medicine | DX: H90.2 Conductive hearing loss, unspecified (principal) | CPT/HCPCS: 70480 ==